=== PATIENT | female | born 1940 | race Caucasian/White ===

== ENCOUNTER 2017-02-07 12:38 | Emergency (ER) | payer MEDICARE ==
[2017-02-07 12:54] VITALS: BP 207/85
--- NOTE | 2017-02-07 13:07 | UC ---
Cardiac HPI - HPI Summary HPI Summary: The patient comes in today for: 1. Chest pain: Onset: "for about a month" She stated that she had it this morning, but it is gone now. Palliative/provocative: Rest makes it better. Quality: Sharp--almost made me catch my breath. She states that she had sweating with it. Nausea: None. Region: Retrosternal, but also radiates to the back in between the shoulder blades and with the left jaw "a little bit." Severity: Now 0/10, 8/10 this AM. Time: Comes and goes for past month. Associated symptoms: CAD risk factor: Previous disease: No stents, no bypasses, no DC, But, she has a history of stents in her right kidney (renal artery) and also in one of her legs. HTN: (+), no DM, Smoker (quit 20 years ago.). Cholesterol-- unknown. Stroke: None. * - History of Current Complaint Chief Complaint: UCChestPain Stated Complaint: CHEST PAIN Time Seen by Provider: 02/07/17 12:59 Hx Obtained From: Patient, Family/Opener Verifier [employer] - Allergy/Home Medications Allergies/Adverse Reactions: Allergies Allergy/AdvReac Type Severity Reaction Status Date / Time No Known Allergies Allergy Verified 02/07/17 12:54 PMH/Surg Hx/FS Hx/Imm Hx Previously Healthy: No - PVD, Endocrine History Of: Reports: Dyslipidemia Denies: Diabetes, Thyroid Disease, Hyperthyroidism, Hypothyroidism Cardiovascular History Of: Reports: Hypertension Denies: Cardiac Disorders, Pacemaker/ICD, Myocardial Infarction, Congestive Heart Failure, Atrial Fibrillation, Deep Vein Thrombosis, Bleeding Disorders Respiratory History Of: Denies: COPD, Asthma, Bronchitis, Pneumonia, Pulmonary Embolism GI/ History Of: Denies: Gastroesophageal Reflux, Ulcer, Gastrointestinal Bleed, Gall Bladder Disease, Kidney Stones, Diverticulitis, Renal Disease, Urosepsis Neurological History Of: Denies: TIA, CVA, Dementia, Seizures, Migraine Psychological History Of: Denies: Anxiety, Depression, Bipolar Disorder, Schizophrenia, Post Traumatic Stress Disorder Cancer History Of: Denies: Lung Cancer, Colorectal Cancer, Breast Cancer, Prostate Cancer, Cervical Cancer Other History Of: Anticoagulant Therapy - Plavix and asa Negative For: HIV, Hepatitis B, Hepatitis C - Surgical History Surgical History: Yes Surgery Procedure, Year, and Place: stent to carotis artey, kidney and rt leg - Family History Known Family History: Positive: Hypertension Negative: Cardiac Disease - Social History Occupation: Retired Lives: With Family Alcohol Use: None Substance Use Type: None Smoking Status (MU): Former Smoker Review of Systems Constitutional: Negative Skin: Negative Eyes: Negative ENT: Negative Respiratory: Negative Cardiovascular: Negative Gastrointestinal: Negative Genitourinary: Negative All Other Systems Reviewed And Are Negative: Yes Physical Exam Triage Information Reviewed: Yes Appearance: Well-Appearing, No Pain Distress, Well-Nourished Vital Signs: Initial Vital Signs Temp 98.0 F 02/07/17 12:47 Pulse 80 02/07/17 12:47 Resp 18 02/07/17 12:47 BP 207/85 02/07/17 12:47 Pulse Ox 95 02/07/17 12:47 Vital Signs Reviewed: Yes Eyes: Positive: Conjunctiva Clear. Negative: Discharge ENT: Positive: Hearing grossly normal. Negative: Pharyngeal erythema, Nasal congestion, Nasal drainage, TM bulging, TM dull, TM red, Tonsillar swelling, Tonsillar exudate Dental: Negative: Gross Decay/Caries @, Dental Fracture @ Neck: Positive: Supple, Nontender, No Lymphadenopathy. Negative: Nuchal Rigidity Respiratory: Positive: Lungs clear, No respiratory distress, No accessory muscle use. Negative: Crackles, Wheezing Cardiovascular: Positive: RRR, No Murmur Abdomen Description: Positive: Nontender, No Organomegaly, Soft. Negative: Distended, Guarding Musculoskeletal: Positive: Strength Intact, ROM Intact, No Edema Neurological: Positive: Alert, Muscle Tone Normal Psychological: Positive: Age Appropriate Behavior, Consolable - Assessment/Plan Course Of Treatment: Patient and family told liz I am concerned that she has CAD and even though she minimizes the chest pain at this time, her EKG suggests ischemia and recommended going to the ER. She agreed to go via ambulance. - Clinical Impression Provider Diagnoses: Chest pain, unstable angina,. high blood pressure. ABnormal EKG-ischemia. - Physician Notifications Discussed Patient Care With: Dr. Rich Time Discussed With Above Provider: 13:33 Discharge - Discharge Plan Condition: Stable Disposition: TRANS HIGHER LVL OF CARE FAC Additional Instructions: Patient is going via Ambulance to [facility].
[2017-02-07] MEDS ORDERED: Aspirin Low Dose CHEW TAB* 81 MG PO ONE (13:27)
== END 2017-02-07 13:44 | disposition short-term general hospital (02) ==
LOC: UCEAST 12:38
DX: R07.9 Chest pain, unspecified (principal); I20.0 Unstable angina; E78.5 Hyperlipidemia, unspecified; R94.31 Abnormal electrocardiogram [ECG] [EKG]; I10 Essential (primary) hypertension; Z79.82 Long term (current) use of aspirin; Z79.02 Long term (current) use of antithrombotics/antiplatelets; Z87.891 Personal history of nicotine dependence
CPT/HCPCS: 93005; 99213; A9270-GY; G0463

== ENCOUNTER 2020-12-19 09:23 | Inpatient (IN) ==
[2020-12-19] MEDS ORDERED: Albuterol/Ipratropium NEB.SOL (2.5/0.5 MG) 3 ML NEB.SOLN INH ONE (09:33)
[2020-12-19 10:16] LABS: ABS Eosinophils 0.1 10^3/ul (0-0.6); ABS Lymphocytes 0.4 10^3/ul (1.0-4.8); ABS Monocytes 0.4 10^3/ul (0-0.8); ABS Neutrophils 7.6 10^3/ul (1.5-7.7); Eosinophil % 1.2 %; Hematocrit 36 % (35-47); Hemoglobin 11.7 g/dL (12.0-16.0); Lymphocyte % 4.2 %; Mean Corpuscular HGB Conc 32 g/dL (31-36); Mean Corpuscular Hemoglobin 29 pg (27-31); Mean Corpuscular Volume 90 fL (80-97); Platelet Count 164 10^3/uL (150-450); Red Blood Count 4.01 10^6 /uL (3.70-4.87); Red Cell Distribution Width 14 % (10-15); White Blood Count 8.5 10^3/uL (3.5-10.8)
[2020-12-19 10:23] LABS: Activated Partial Thrombo Time 30.9 seconds (26.0-38.0); INR 1.23 (0.82-1.09)
[2020-12-19 10:40] LABS: ALT 14 U/L (7-52); AST 17 U/L (13-39); Albumin 3.8 g/dL (3.2-5.2); Albumin/Globulin Ratio 1.2 (1-3); Alkaline Phosphatase 69 U/L (34-104); Anion Gap 6 mmol/L (2-11); BUN/Creatinine Ratio 24.7 (8-20); Blood Urea Nitrogen 19 mg/dL (6-24); CO2 Carbon Dioxide 30 mmol/L (22-32); Calcium 9.9 mg/dL (8.6-10.3); Chloride 104 mmol/L (101-111); Creatine Kinase 57 U/L (10-223); EGFR African American 87.7 (>60); EGFR Non-African American 72.5 (>60); Globulin 3.1 g/dL (2-4); Glucose 127 mg/dL (70-100); Potassium 4.4 mmol/L (3.5-5.0); Sodium 140 mmol/L (135-145); Total Protein 6.9 g/dL (6.4-8.9)
[2020-12-19 10:59] LABS: Troponin I 0.03 ng/mL (<0.03)
[2020-12-19 11:01] LABS: Influenza A Molecular Negative (Negative); Influenza B Molecular Negative (Negative)
[2020-12-19] MEDS ORDERED: cefTRIAXone 1 gm/50 mL NS BAG 1 GM/50 ML BAG IV ONE (11:18)
[2020-12-19] MEDS ORDERED: Azithromycin 500 mg/250 ml NS 500 MG/250 ML BAG IVPB ONE (11:19)
[2020-12-19 13:33] LABS: Troponin I 0.04 ng/mL (<0.03)
[2020-12-19] MEDS ORDERED: Albuterol/Ipratropium NEB.SOL (2.5/0.5 MG) 3 ML NEB.SOLN INH SCH (15:00)
[2020-12-19] MEDS ORDERED: Albuterol HFA INHALER 8 gm MDI INH PRN (15:17)
[2020-12-19] MEDS ORDERED: Furosemide 40 mg/4 ml IV VIAL IV ONE (15:20)
[2020-12-19] MEDS: methylPREDNISolone SOD 40 mg/ml 1 ml VIAL IV SCH (16:24)
[2020-12-19] MEDS: Enoxaparin 40 MG/0.4 ML SYR SUBCUT SCH (16:24)
[2020-12-19 17:14] LABS: Troponin I 0.04 ng/mL (<0.03)
[2020-12-19 17:40] LABS: Urine Appearance Cloudy; Urine Bilirubin Negative (Negative); Urine Blood Negative (Negative); Urine Color Yellow; Urine Glucose Negative (Negative); Urine Ketones Negative (Negative); Urine Nitrite Negative (Negative); Urine Protein 2+(100 mg/dL) (Negative); Urine Specific Gravity 1.016 (1.010-1.030); Urine Urobilinogen Negative (Negative)
[2020-12-19 17:59] LABS: Urine Bacteria Absent (Absent); Urine Red Blood Cell Trace(0-2/hpf) (Absent); Urine Squamous Epithelial Cell Present (Absent); Urine White Blood Cell Trace(0-5/hpf) (Absent)
[2020-12-20] MEDS: methylPREDNISolone SOD 40 mg/ml 1 ml VIAL IV SCH ×2 (01:43→15:04)
[2020-12-20 08:53] LABS: ABS Basophils 0.1 10^3/ul (0-0.2); ABS Lymphocytes 0.3 10^3/ul (1.0-4.8); ABS Monocytes 0.2 10^3/ul (0-0.8); ABS Neutrophils 8.8 10^3/ul (1.5-7.7); Hematocrit 33 % (35-47); Hemoglobin 10.9 g/dL (12.0-16.0); Lymphocyte % 3.1 %; Mean Corpuscular HGB Conc 34 g/dL (31-36); Mean Corpuscular Hemoglobin 30 pg (27-31); Mean Corpuscular Volume 89 fL (80-97); Platelet Count 154 10^3/uL (150-450); Red Blood Count 3.65 10^6 /uL (3.70-4.87); Red Cell Distribution Width 14 % (10-15); White Blood Count 9.5 10^3/uL (3.5-10.8)
[2020-12-20 09:09] LABS: BUN/Creatinine Ratio 33.8 (8-20); Calcium 9.9 mg/dL (8.6-10.3); EGFR African American 96.3 (>60); EGFR Non-African American 79.6 (>60); Potassium 4.3 mmol/L (3.5-5.0)
[2020-12-20] MEDS: cefTRIAXone 1 gm/50 mL NS BAG 1 GM/50 ML BAG IVPB SCH (10:33)
[2020-12-20] MEDS: Enoxaparin 40 MG/0.4 ML SYR SUBCUT SCH (15:04)
[2020-12-21 05:30] LABS: ABS Lymphocytes 0.5 10^3/ul (1.0-4.8); ABS Monocytes 0.5 10^3/ul (0-0.8); ABS Neutrophils 10.1 10^3/ul (1.5-7.7); Hematocrit 30 % (35-47); Hemoglobin 9.7 g/dL (12.0-16.0); Lymphocyte % 4.1 %; Mean Corpuscular HGB Conc 33 g/dL (31-36); Mean Corpuscular Hemoglobin 30 pg (27-31); Mean Corpuscular Volume 90 fL (80-97); Mean Platelet Volume 9.7 fL (7.4-10.4); Platelet Count 146 10^3/uL (150-450); Red Blood Count 3.27 10^6 /uL (3.70-4.87); Red Cell Distribution Width 14 % (10-15); White Blood Count 11.1 10^3/uL (3.5-10.8)
[2020-12-21 05:48] LABS: BUN/Creatinine Ratio 39.5 (8-20); C Reactive Protein 56.82 mg/L (<8.01); Calcium 9.3 mg/dL (8.6-10.3); EGFR African American 89.1 (>60); EGFR Non-African American 73.6 (>60); Potassium 4.9 mmol/L (3.5-5.0)
[2020-12-21] MEDS ORDERED: Bismuth Subsalicylate 524 MG/30 ML BTL PO PRN (07:59)
[2020-12-21] MEDS: cefTRIAXone 1 gm/50 mL NS BAG 1 GM/50 ML BAG IVPB SCH (10:25)
[2020-12-21 12:02] VITALS: BP 121/47
[2020-12-21] MEDS: Enoxaparin 40 MG/0.4 ML SYR SUBCUT SCH (14:10)
== END 2020-12-21 16:25 | disposition home or self-care (01) | DRG 190 ==
LOC: ED 09:23 → MED 13:37
PROVIDERS: ADMIT Internal Medicine; ATTEND Pediatrics

== ENCOUNTER 2021-08-22 10:00 | Observation (INO) ==
[2021-08-22] MEDS ORDERED: Lactated Ringers 1000 ml BAG 1,000 ML IV ONE (10:24)
[2021-08-22] MEDS ORDERED: Pantoprazole VIAL 40 MG VIAL IV ONE (10:30)
[2021-08-22 10:41] LABS: ABS Basophils 0.1 10^3/ul (0-0.2); ABS Lymphocytes 0.7 10^3/ul (1.0-4.8); ABS Monocytes 0.4 10^3/ul (0-0.8); ABS Neutrophils 6.8 10^3/ul (1.5-7.7); Eosinophil % 0.4 %; Hematocrit 22 % (35-47); Hemoglobin 6.8 g/dL (12.0-16.0); Lymphocyte % 8.7 %; Mean Corpuscular HGB Conc 31 g/dL (31-36); Mean Corpuscular Hemoglobin 24 pg (27-31); Mean Corpuscular Volume 78 fL (80-97); Mean Platelet Volume 10.1 fL (7.4-10.4); Nucleated Red Blood Cells % 0.1; Platelet Count 140 10^3/uL (150-450); Red Cell Distribution Width 17 % (10-15)
[2021-08-22 10:52] LABS: INR 1.18 (0.86-1.15)
[2021-08-22 10:56] LABS: ALT 8 U/L (7-52); AST 24 U/L (13-39); Albumin 3.7 g/dL (3.2-5.2); Albumin/Globulin Ratio 1.8 (1-3); Alkaline Phosphatase 58 U/L (35-149); Anion Gap 9 mmol/L (2-11); Blood Urea Nitrogen 30 mg/dL (6-24); CO2 Carbon Dioxide 23 mmol/L (22-32); Calcium 9.7 mg/dL (8.6-10.3); Chloride 105 mmol/L (101-111); Globulin 2.1 g/dL (2-4); Glucose 116 mg/dL (70-100); Potassium 4.6 mmol/L (3.5-5.0); Sodium 137 mmol/L (135-145); Total Protein 5.8 g/dL (6.4-8.9)
[2021-08-22] MEDS ORDERED: Iodixanol (CONTRAST) 320 MG/ML 100 ML SDV IV ONE (11:15)
[2021-08-22] MEDS ORDERED: Pantoprazole 80 mg in NS BAG 80 MG/250 ML BAG IV ONE (14:00)
[2021-08-22] MEDS ORDERED: NS 0.9% 1000 ml BAG 1,000 ML IV SCH ×3 (15:15→21:33)
[2021-08-22] MEDS ORDERED: Albuterol HFA INHALER 8 gm MDI INH PRN (15:44)
[2021-08-22] MEDS ORDERED: fentaNYL 100 mcg/2 ml 50 MCG/ML VIAL ONE (16:14)
[2021-08-22] MEDS ORDERED: Midazolam 10 mg/10 ml VIAL 1 mg/ml 10 ml VIAL (10 mg) ONE (16:14)
[2021-08-22] MEDS ORDERED: PEG 3000 GI LAVAGE 1 GALLON PO ONE (17:00)
[2021-08-22 18:56] LABS: C Reactive Protein < 1.00 mg/L (<8.01)
[2021-08-22 19:54] LABS: Hematocrit 23 % (35-47); Hemoglobin 7.3 g/dL (12.0-16.0)
[2021-08-22] MEDS ORDERED: Furosemide 40 mg/4 ml IV VIAL IV SLOW PU ONE (22:25)
[2021-08-22] MEDS ORDERED: Ondansetron 4 mg VIAL 2 MG/ML 2 ml VIAL IV PRN (22:27)
[2021-08-22] MEDS ORDERED: Furosemide 20 mg/2 ml IV VIAL IV SLOW PU ONE (22:30)
[2021-08-23] MEDS ORDERED: Pantoprazole 80 mg in NS BAG 80 MG/250 ML BAG IV SCH (01:00)
[2021-08-23 04:50] LABS: Calcium 8.6 mg/dL (8.6-10.3); Potassium 3.7 mmol/L (3.5-5.0)
[2021-08-23] MEDS ORDERED: PEG 3000 GI LAVAGE 1 GALLON PO ONE (06:00)
[2021-08-23 06:13] LABS: Hematocrit 25 % (35-47); Hemoglobin 7.9 g/dL (12.0-16.0); Mean Corpuscular HGB Conc 32 g/dL (31-36); Mean Corpuscular Hemoglobin 25 pg (27-31); Mean Corpuscular Volume 80 fL (80-97); Red Blood Count 3.12 10^6 /uL (3.70-4.87); Red Cell Distribution Width 17 % (10-15); White Blood Count 4.8 10^3/uL (3.5-10.8)
[2021-08-23 06:14] LABS: ABS Basophils 0.1 10^3/ul (0-0.2); ABS Eosinophils 0.2 10^3/ul (0-0.6); ABS Lymphocytes 0.7 10^3/ul (1.0-4.8); ABS Monocytes 0.6 10^3/ul (0-0.8); ABS Neutrophils 3.2 10^3/ul (1.5-7.7); Eosinophil % 4.1 %; Nucleated Red Blood Cells % 0.1
[2021-08-23 08:31] LABS: Mean Platelet Volume 10.3 fL (7.4-10.4); Platelet Count 94 10^3/uL (150-450)
[2021-08-23 09:57] LABS: Hematocrit 26 % (35-47); Hemoglobin 8.2 g/dL (12.0-16.0)
[2021-08-23] MEDS ORDERED: fentaNYL 100 mcg/2 ml 50 MCG/ML VIAL ONE (14:01)
[2021-08-23] MEDS ORDERED: Midazolam 10 mg/10 ml VIAL 1 mg/ml 10 ml VIAL (10 mg) ONE (14:01)
[2021-08-23] MEDS ORDERED: Furosemide 20 mg/2 ml IV VIAL IV SLOW PU ONE ×2 (15:27→17:12)
[2021-08-23] MEDS ORDERED: Albuterol 2.5mg/3 ml (0.083%) NEB.SOLN INH ONE ×2 (15:27→20:48)
[2021-08-23] MEDS ORDERED: Furosemide 20 mg/2 ml IV VIAL ONE ×2 (15:41→17:13)
[2021-08-23 16:07] LABS: ABS Basophils 0.1 10^3/ul (0-0.2); ABS Eosinophils 0.4 10^3/ul (0-0.6); ABS Lymphocytes 1.2 10^3/ul (1.0-4.8); ABS Monocytes 0.8 10^3/ul (0-0.8); ABS Neutrophils 4.6 10^3/ul (1.5-7.7); Eosinophil % 5.3 %; Hematocrit 27 % (35-47); Hemoglobin 8.7 g/dL (12.0-16.0); Lymphocyte % 17.1 %; Mean Corpuscular HGB Conc 32 g/dL (31-36); Mean Corpuscular Hemoglobin 26 pg (27-31); Mean Corpuscular Volume 80 fL (80-97); Mean Platelet Volume 10.6 fL (7.4-10.4); Nucleated Red Blood Cells % 0.2; Platelet Count 111 10^3/uL (150-450); Red Blood Count 3.37 10^6 /uL (3.70-4.87); Red Cell Distribution Width 17 % (10-15)
[2021-08-23 16:48] LABS: Calcium 8.7 mg/dL (8.6-10.3); Potassium 3.6 mmol/L (3.5-5.0)
[2021-08-23 16:57] LABS: PCO2 Arterial 71 mmHg (35-45); PO2 Arterial 188 mmHg (80-100)
[2021-08-23 21:35] LABS: Troponin I 0.04 ng/mL (<0.03)
[2021-08-24 00:13] LABS: Troponin I 0.04 ng/mL (<0.03)
[2021-08-24 03:34] LABS: ABS Eosinophils 0.1 10^3/ul (0-0.6); ABS Lymphocytes 0.9 10^3/ul (1.0-4.8); ABS Monocytes 0.7 10^3/ul (0-0.8); Anion Gap 5 mmol/L (2-11); Blood Urea Nitrogen 10 mg/dL (6-24); CO2 Carbon Dioxide 35 mmol/L (22-32); Calcium 8.4 mg/dL (8.6-10.3); Chloride 98 mmol/L (101-111); Eosinophil % 1.6 %; Glucose 75 mg/dL (70-100); Hematocrit 23 % (35-47); Hemoglobin 7.5 g/dL (12.0-16.0); Mean Corpuscular HGB Conc 32 g/dL (31-36); Mean Corpuscular Hemoglobin 25 pg (27-31); Mean Corpuscular Volume 78 fL (80-97); Mean Platelet Volume 10.1 fL (7.4-10.4); Nucleated Red Blood Cells % 0.1; Platelet Count 88 10^3/uL (150-450); Potassium 3.2 mmol/L (3.5-5.0); Red Blood Count 2.96 10^6 /uL (3.70-4.87); Red Cell Distribution Width 17 % (10-15); Sodium 138 mmol/L (135-145); White Blood Count 6.7 10^3/uL (3.5-10.8)
[2021-08-24 03:51] LABS: Troponin I 0.06 ng/mL (<0.03)
[2021-08-24 10:51] LABS: Troponin I 0.07 ng/mL (<0.03)
[2021-08-24] MEDS: KCL 20 MEQ/100 ML IVPREMIX 20 MEQ/100 ML BAG IV SCH ×2 (11:32→15:33)
[2021-08-24] MEDS ORDERED: Furosemide 40 mg/4 ml IV VIAL IV SLOW PU ONE (20:40)
[2021-08-24] MEDS ORDERED: Furosemide 40 mg/4 ml IV VIAL ONE (20:46)
[2021-08-24 22:15] LABS: PCO2 Arterial 70 mmHg (35-45); PO2 Arterial 119 mmHg (80-100)
[2021-08-24 22:35] LABS: Rapid COVID-19 Molecular Undetected (Undetected)
[2021-08-24] MEDS ORDERED: Bumetanide IV 10 MG in Premix IV 0 ML IV SCH (23:15)
[2021-08-25] MEDS ORDERED: Bumetanide IV 10 MG in Premix IV 0 ML IV SCH (03:05)
[2021-08-25] MEDS ORDERED: Bumetanide IV 0.25 MG/ML 4 ml VIAL (1 mg) ONE (03:11)
[2021-08-25 05:03] LABS: ABS Lymphocytes 0.4 10^3/ul (1.0-4.8); ABS Monocytes 0.8 10^3/ul (0-0.8); ABS Neutrophils 6.6 10^3/ul (1.5-7.7); Eosinophil % 0.3 %; Hematocrit 29 % (35-47); Hemoglobin 9.4 g/dL (12.0-16.0); Lymphocyte % 5.6 %; Mean Corpuscular HGB Conc 32 g/dL (31-36); Mean Corpuscular Hemoglobin 26 pg (27-31); Mean Corpuscular Volume 80 fL (80-97); Mean Platelet Volume 10.6 fL (7.4-10.4); Platelet Count 92 10^3/uL (150-450); Red Blood Count 3.65 10^6 /uL (3.70-4.87); Red Cell Distribution Width 17 % (10-15); White Blood Count 7.8 10^3/uL (3.5-10.8)
[2021-08-25 05:17] LABS: Magnesium 1.4 mg/dL (1.9-2.7); Potassium 3.3 mmol/L (3.5-5.0)
[2021-08-25] MEDS ORDERED: Magnesium Sulf 4 GM/100 ML IV 4,000 MG/100 ML BAG IVPB ONE (07:31)
[2021-08-25 08:00] LABS: Phosphorus 4.1 mg/dL (2.5-5.0)
[2021-08-25] MEDS ORDERED: Potassium Chlor 20 meq TAB.ER PO ONE (11:47)
[2021-08-25] MEDS ORDERED: KCL 10 MEQ/50 ML IVPREMIX 10 MEQ/50 ML BAG IV ONE (11:55)
[2021-08-26 05:37] LABS: Calcium 8.9 mg/dL (8.6-10.3); Magnesium 1.9 mg/dL (1.9-2.7); Phosphorus 2.6 mg/dL (2.5-5.0); Potassium 3.4 mmol/L (3.5-5.0)
[2021-08-26 05:38] LABS: ABS Eosinophils 0.2 10^3/ul (0-0.6); ABS Lymphocytes 0.4 10^3/ul (1.0-4.8); ABS Neutrophils 6.4 10^3/ul (1.5-7.7); Eosinophil % 2.7 %; Hematocrit 27 % (35-47); Hemoglobin 8.8 g/dL (12.0-16.0); Lymphocyte % 5.5 %; Mean Corpuscular HGB Conc 33 g/dL (31-36); Mean Corpuscular Hemoglobin 26 pg (27-31); Mean Corpuscular Volume 80 fL (80-97); Mean Platelet Volume 10.2 fL (7.4-10.4); Platelet Count 86 10^3/uL (150-450); Red Blood Count 3.41 10^6 /uL (3.70-4.87); Red Cell Distribution Width 17 % (10-15); White Blood Count 8.1 10^3/uL (3.5-10.8)
[2021-08-26] MEDS ORDERED: Potassium Chlor 20 meq TAB.ER PO ONE (07:20)
[2021-08-26] MEDS ORDERED: Furosemide 40 mg/4 ml IV VIAL IV SLOW PU ONE (09:18)
[2021-08-26] MEDS ORDERED: Potassium Chloride LIQUID 20 MEQ/15 ML LIQUID PO ONE (09:18)
[2021-08-26] MEDS: SPIRIVA Respimat (tiotropium) 2.5 mcg/inh Inhaler INH SCH (14:14)
[2021-08-27 04:32] LABS: ABS Eosinophils 0.2 10^3/ul (0-0.6); ABS Lymphocytes 0.5 10^3/ul (1.0-4.8); ABS Monocytes 0.8 10^3/ul (0-0.8); ABS Neutrophils 4.2 10^3/ul (1.5-7.7); Eosinophil % 3.6 %; Hematocrit 28 % (35-47); Hemoglobin 8.9 g/dL (12.0-16.0); Lymphocyte % 8.8 %; Mean Corpuscular HGB Conc 32 g/dL (31-36); Mean Corpuscular Hemoglobin 26 pg (27-31); Mean Corpuscular Volume 80 fL (80-97); Mean Platelet Volume 9.8 fL (7.4-10.4); Platelet Count 100 10^3/uL (150-450); Red Blood Count 3.48 10^6 /uL (3.70-4.87); Red Cell Distribution Width 18 % (10-15); White Blood Count 5.7 10^3/uL (3.5-10.8)
[2021-08-27 04:52] LABS: Albumin 3.4 g/dL (3.2-5.2); Albumin/Globulin Ratio 1.7 (1-3); Calcium 9.3 mg/dL (8.6-10.3); Magnesium 1.8 mg/dL (1.9-2.7); Potassium 3.2 mmol/L (3.5-5.0); Total Bilirubin 0.5 mg/dL (0.2-1.0); Total Protein 5.4 g/dL (6.4-8.9)
[2021-08-27] MEDS ORDERED: Potassium Chlor 20 meq TAB.ER PO ONE (09:24)
[2021-08-27] MEDS ORDERED: Magnesium Sulfate 2 gm BAG 2 GM/50 ML BAG IVPB ONE (09:24)
[2021-08-27] MEDS ORDERED: Aspirin EC 81 mg TAB.EC (enteric coated) PO SCH (10:00)
[2021-08-27] MEDS: SPIRIVA Respimat (tiotropium) 2.5 mcg/inh Inhaler INH SCH (10:18)
[2021-08-27 11:54] VITALS: BP 134/65
== END 2021-08-27 15:10 | disposition home or self-care (01) | DRG 377 ==
LOC: MEDTELE 10:00 → ED 10:00 → OBSVTOIN 15:48 → INTOOBSV 15:48 → SUATTDRO 15:48 → MEDTELE 15:52 → ICU 08-24 21:14 → MED 08-26 19:45
PROVIDERS: ADMIT Internal Medicine; ATTEND Hospitalist

== ENCOUNTER 2021-09-01 10:25 | Inpatient (IN) ==
[2021-09-01 11:05] LABS: ABS Basophils 0.1 10^3/ul (0-0.2); ABS Eosinophils 0.3 10^3/ul (0-0.6); ABS Monocytes 0.6 10^3/ul (0-0.8); ABS Neutrophils 7.5 10^3/ul (1.5-7.7); Eosinophil % 2.8 %; Hematocrit 26 % (35-47); Lymphocyte % 10.7 %; Mean Corpuscular HGB Conc 31 g/dL (31-36); Mean Corpuscular Hemoglobin 25 pg (27-31); Mean Corpuscular Volume 82 fL (80-97); Mean Platelet Volume 10.3 fL (7.4-10.4); Platelet Count 182 10^3/uL (150-450); Red Blood Count 3.17 10^6 /uL (3.70-4.87); Red Cell Distribution Width 18 % (10-15); White Blood Count 9.4 10^3/uL (3.5-10.8)
[2021-09-01] MEDS ORDERED: PEG 3000 GI LAVAGE 1 GALLON PO ONE (11:14)
[2021-09-01 11:24] LABS: Albumin 3.5 g/dL (3.2-5.2); Albumin/Globulin Ratio 1.6 (1-3); Calcium 9.6 mg/dL (8.6-10.3); Globulin 2.2 g/dL (2-4); INR 1.08 (0.86-1.15); Potassium 4.7 mmol/L (3.5-5.0); Total Bilirubin 0.4 mg/dL (0.2-1.0); Total Protein 5.7 g/dL (6.4-8.9); eGFR CKD-EPI 67.7 (>60)
[2021-09-01] MEDS ORDERED: Ondansetron 4 mg VIAL 2 MG/ML 2 ml VIAL IV ONE (13:32)
[2021-09-01] MEDS ORDERED: Ondansetron 4 mg VIAL 2 MG/ML 2 ml VIAL IV PRN (14:03)
[2021-09-01] MEDS ORDERED: Albuterol HFA INHALER 8 gm MDI INH PRN (14:08)
[2021-09-01 17:32] LABS: Rapid COVID-19 Molecular Undetected (Undetected)
[2021-09-01 19:39] LABS: Hematocrit 21 % (35-47); Hemoglobin 6.6 g/dL (12.0-16.0)
[2021-09-02 02:59] LABS: Hematocrit 23 % (35-47); Hemoglobin 7.3 g/dL (12.0-16.0)
[2021-09-02] MEDS: SPIRIVA Respimat (tiotropium) 2.5 mcg/inh Inhaler INH SCH (08:24)
[2021-09-02 08:54] LABS: ABS Eosinophils 0.2 10^3/ul (0-0.6); ABS Lymphocytes 0.7 10^3/ul (1.0-4.8); ABS Monocytes 0.4 10^3/ul (0-0.8); ABS Neutrophils 2.5 10^3/ul (1.5-7.7); Eosinophil % 4.1 %; Hematocrit 29 % (35-47); Hemoglobin 9.5 g/dL (12.0-16.0); Lymphocyte % 18.5 %; Mean Corpuscular HGB Conc 32 g/dL (31-36); Mean Corpuscular Hemoglobin 27 pg (27-31); Mean Corpuscular Volume 82 fL (80-97); Mean Platelet Volume 10.3 fL (7.4-10.4); Platelet Count 130 10^3/uL (150-450); Red Blood Count 3.57 10^6 /uL (3.70-4.87); Red Cell Distribution Width 18 % (10-15); White Blood Count 3.8 10^3/uL (3.5-10.8)
[2021-09-02 09:12] LABS: Calcium 9.3 mg/dL (8.6-10.3); Potassium 4.3 mmol/L (3.5-5.0); eGFR CKD-EPI 82.2 (>60)
[2021-09-02 18:13] LABS: Hematocrit 32 % (35-47); Hemoglobin 10.1 g/dL (12.0-16.0)
[2021-09-03 05:50] LABS: ABS Eosinophils 0.2 10^3/ul (0-0.6); ABS Lymphocytes 0.6 10^3/ul (1.0-4.8); ABS Monocytes 0.5 10^3/ul (0-0.8); ABS Neutrophils 2.4 10^3/ul (1.5-7.7); Eosinophil % 4.7 %; Hematocrit 28 % (35-47); Lymphocyte % 15.8 %; Mean Corpuscular HGB Conc 32 g/dL (31-36); Mean Corpuscular Hemoglobin 26 pg (27-31); Mean Corpuscular Volume 82 fL (80-97); Mean Platelet Volume 9.8 fL (7.4-10.4); Platelet Count 115 10^3/uL (150-450); Red Blood Count 3.44 10^6 /uL (3.70-4.87); Red Cell Distribution Width 18 % (10-15); White Blood Count 3.7 10^3/uL (3.5-10.8)
[2021-09-03 06:12] LABS: Calcium 9.4 mg/dL (8.6-10.3); eGFR CKD-EPI 78.4 (>60)
[2021-09-03] MEDS: SPIRIVA Respimat (tiotropium) 2.5 mcg/inh Inhaler INH SCH (06:52)
[2021-09-04] MEDS: SPIRIVA Respimat (tiotropium) 2.5 mcg/inh Inhaler INH SCH (08:30)
[2021-09-04] MEDS ORDERED: Regadenoson 0.4 MG/5 ML SYRINGE ONE (11:55)
[2021-09-04] MEDS ORDERED: Aminophylline 25 MG/ML VIAL ONE (11:55)
[2021-09-04 15:48] VITALS: BP 146/69
== END 2021-09-04 16:05 | disposition home or self-care (01) | DRG 379 ==
LOC: ED 10:25 → EDHOLD 14:23 → MEDTELE 16:33
PROVIDERS: ADMIT Hospitalist; ATTEND Internal Medicine

== ENCOUNTER 2021-10-16 08:29 | Inpatient (IN) ==
[2021-10-16 09:49] LABS: ABS Eosinophils 0.1 10^3/ul (0-0.6); ABS Lymphocytes 0.4 10^3/ul (1.0-4.8); ABS Monocytes 0.5 10^3/ul (0-0.8); ABS Neutrophils 5.5 10^3/ul (1.5-7.7); Eosinophil % 1.1 %; Hematocrit 23 % (35-47); Hemoglobin 6.9 g/dL (12.0-16.0); Lymphocyte % 6.7 %; Mean Corpuscular HGB Conc 30 g/dL (31-36); Mean Corpuscular Hemoglobin 24 pg (27-31); Mean Corpuscular Volume 79 fL (80-97); Mean Platelet Volume 10.8 fL (7.4-10.4); Nucleated Red Blood Cells % 0.1; Platelet Count 114 10^3/uL (150-450); Red Blood Count 2.95 10^6 /uL (3.70-4.87); Red Cell Distribution Width 20 % (10-15); White Blood Count 6.6 10^3/uL (3.5-10.8)
[2021-10-16 10:05] LABS: Albumin 3.6 g/dL (3.2-5.2); Albumin/Globulin Ratio 2.1 (1-3); Globulin 1.7 g/dL (2-4); Potassium 4.3 mmol/L (3.5-5.0); Total Bilirubin 0.3 mg/dL (0.2-1.0); Total Protein 5.3 g/dL (6.4-8.9); eGFR CKD-EPI 87.9 (>60)
[2021-10-16] MEDS ORDERED: Ondansetron 4 mg VIAL 2 MG/ML 2 ml VIAL IV PRN (12:06)
[2021-10-16] MEDS ORDERED: Albuterol HFA INHALER 8 gm MDI INH PRN (12:24)
[2021-10-16 13:34] LABS: INR 1.23 (0.86-1.15)
[2021-10-16] MEDS ORDERED: PEG 3000 GI LAVAGE 1 GALLON PO ONE (16:56)
[2021-10-16 19:26] LABS: Hematocrit 25 % (35-47); Hemoglobin 7.7 g/dL (12.0-16.0)
[2021-10-16 23:17] LABS: Hematocrit 22 % (35-47); Hemoglobin 6.8 g/dL (12.0-16.0)
[2021-10-17 07:57] LABS: Hematocrit 29 % (35-47); Hemoglobin 8.9 g/dL (12.0-16.0); Mean Corpuscular HGB Conc 31 g/dL (31-36); Mean Corpuscular Hemoglobin 26 pg (27-31); Mean Corpuscular Volume 84 fL (80-97); Mean Platelet Volume 10.4 fL (7.4-10.4); Platelet Count 127 10^3/uL (150-450); Red Blood Count 3.49 10^6 /uL (3.70-4.87); Red Cell Distribution Width 20 % (10-15); White Blood Count 8.3 10^3/uL (3.5-10.8)
[2021-10-17 08:14] LABS: Calcium 8.7 mg/dL (8.6-10.3); Potassium 4.4 mmol/L (3.5-5.0); eGFR CKD-EPI 88.5 (>60)
[2021-10-17 08:20] LABS: ABS Eosinophils 0.1 10^3/ul (0-0.6); ABS Lymphocytes 0.5 10^3/ul (1.0-4.8); ABS Monocytes 0.8 10^3/ul (0-0.8); ABS Neutrophils 6.9 10^3/ul (1.5-7.7); Eosinophil % 0.7 %; Nucleated Red Blood Cells % 0.1
[2021-10-17] MEDS: SPIRIVA Respimat (tiotropium) 2.5 mcg/inh Inhaler INH SCH (08:46)
[2021-10-17] MEDS ORDERED: Succinylcholine 200 mg VIAL 20 mg/ml 10 ml VIAL (200 mg) ONE (11:33)
[2021-10-17] MEDS ORDERED: Rocuronium 50 mg VIAL 10 mg/ml 5 ml VIAL (50 mg) ONE ×2 (11:33→12:48)
[2021-10-17 11:37] LABS: PO2 Arterial 67 mmHg (80-100)
[2021-10-17 11:42] LABS: PCO2 Arterial 109 mmHg (35-45)
[2021-10-17] MEDS ORDERED: Lactated Ringers 1000 ml BAG 1,000 ML IV ONE (11:46)
[2021-10-17 12:20] LABS: Hematocrit 31 % (35-47); Hemoglobin 9.4 g/dL (12.0-16.0)
[2021-10-17] MEDS ORDERED: Norepinephrine 16MCG/ML BAG NS 4,000 MCG/250 ML BAG IV ONE (12:50)
[2021-10-17] MEDS ORDERED: Etomidate 40 mg/20 ml (2 MG/ML) 20 ml VIAL (40 mg) ONE (13:12)
[2021-10-17] MEDS ORDERED: Propofol 10 mg/ml 100 ML BTL 100 ML ONE (14:03)
[2021-10-17] MEDS: Propofol 10 mg/ml 100 ML BTL 100 ML IV SCH ×2 (14:11→19:06)
[2021-10-17] MEDS ORDERED: Norepinephrine 16MCG/ML BAG NS 4,000 MCG/250 ML BAG IV SCH (15:00)
[2021-10-17] MEDS: Chlorhexidine MOUTHWASH 0.12% 15 ML UDC TOPICAL SCH ×3 (15:12→20:33)
[2021-10-17 15:57] LABS: PO2 Arterial 127 mmHg (80-100)
[2021-10-17 16:02] LABS: PCO2 Arterial 80 mmHg (35-45)
[2021-10-17 16:59] LABS: Hematocrit 30 % (35-47); Hemoglobin 9.3 g/dL (12.0-16.0)
[2021-10-17] MEDS: Famotidine IV 10 MG/ML 2 ml VIAL (20 mg) IV SLOW PU SCH (20:33)
[2021-10-17 21:49] LABS: Hematocrit 25 % (35-47); Hemoglobin 7.9 g/dL (12.0-16.0)
[2021-10-18] MEDS: Propofol 10 mg/ml 100 ML BTL 100 ML IV SCH ×3 (00:11→05:10)
[2021-10-18] MEDS ORDERED: Acetaminophen IV 1 GM/100ML VI 100 ML IV PRN (01:20)
[2021-10-18] MEDS: Chlorhexidine MOUTHWASH 0.12% 15 ML UDC TOPICAL SCH ×3 (01:56→08:45)
[2021-10-18 05:17] LABS: Hematocrit 26 % (35-47); Hemoglobin 8.3 g/dL (12.0-16.0); Mean Corpuscular HGB Conc 32 g/dL (31-36); Mean Corpuscular Hemoglobin 26 pg (27-31); Mean Corpuscular Volume 81 fL (80-97); Mean Platelet Volume 10.4 fL (7.4-10.4); Platelet Count 90 10^3/uL (150-450); Red Blood Count 3.22 10^6 /uL (3.70-4.87); Red Cell Distribution Width 21 % (10-15); White Blood Count 8.7 10^3/uL (3.5-10.8)
[2021-10-18 05:21] LABS: INR 1.28 (0.86-1.15)
[2021-10-18 05:29] LABS: Calcium 8.9 mg/dL (8.6-10.3); Magnesium 1.6 mg/dL (1.9-2.7); Potassium 4.1 mmol/L (3.5-5.0); eGFR CKD-EPI 70.6 (>60)
[2021-10-18] MEDS: SPIRIVA Respimat (tiotropium) 2.5 mcg/inh Inhaler INH SCH (07:14)
[2021-10-18] MEDS ORDERED: Magnesium Sulf 4 GM/100 ML IV 4,000 MG/100 ML BAG IVPB ONE (07:14)
[2021-10-18] MEDS: Famotidine IV 10 MG/ML 2 ml VIAL (20 mg) IV SLOW PU SCH ×2 (07:24→21:38)
[2021-10-18 10:56] LABS: PCO2 Arterial 62 mmHg (35-45); PO2 Arterial 104 mmHg (80-100)
[2021-10-18] MEDS ORDERED: Furosemide 40 mg/4 ml IV VIAL ONE (12:41)
[2021-10-18] MEDS ORDERED: Furosemide 40 mg/4 ml IV VIAL IV SLOW PU ONE (12:45)
[2021-10-18] MEDS ORDERED: Albuterol HFA INHALER 8 gm MDI INH PRN (14:58)
[2021-10-18 16:37] LABS: Ferritin 25.1 ng/mL (11-307)
[2021-10-19 04:56] LABS: ABS Basophils 0.1 10^3/ul (0-0.2); ABS Lymphocytes 0.5 10^3/ul (1.0-4.8); ABS Monocytes 1.2 10^3/ul (0-0.8); ABS Neutrophils 13.6 10^3/ul (1.5-7.7); Eosinophil % 0.2 %; Hematocrit 30 % (35-47); Hemoglobin 9.3 g/dL (12.0-16.0); Lymphocyte % 3.5 %; Mean Corpuscular HGB Conc 31 g/dL (31-36); Mean Corpuscular Hemoglobin 26 pg (27-31); Mean Corpuscular Volume 83 fL (80-97); Mean Platelet Volume 10.7 fL (7.4-10.4); Nucleated Red Blood Cells % 0.1; Platelet Count 115 10^3/uL (150-450); Red Blood Count 3.59 10^6 /uL (3.70-4.87); Red Cell Distribution Width 21 % (10-15); White Blood Count 15.4 10^3/uL (3.5-10.8)
[2021-10-19 05:09] LABS: Calcium 9.1 mg/dL (8.6-10.3); Phosphorus 3.8 mg/dL (2.5-5.0); Potassium 3.6 mmol/L (3.5-5.0); eGFR CKD-EPI 90.2 (>60)
[2021-10-19] MEDS ORDERED: Potassium Chlor 20 meq TAB.ER PO ONE (07:40)
[2021-10-19] MEDS: Famotidine IV 10 MG/ML 2 ml VIAL (20 mg) IV SLOW PU SCH (08:33)
[2021-10-19] MEDS: Iron Sucrose 200 MG in NS 0.9% 100 ml BAG 100 ML IVPB SCH (08:34)
[2021-10-19] MEDS ORDERED: Albuterol/Ipratropium NEB.SOL (2.5/0.5 MG) 3 ML NEB.SOLN INH ONE (08:38)
[2021-10-19] MEDS ORDERED: Iron Sucrose 200 MG in NS 0.9% 100 ml BAG 100 ML IVPB ONE (09:00)
[2021-10-19 10:31] LABS: PO2 Arterial 86 mmHg (80-100)
[2021-10-19] MEDS ORDERED: Furosemide 40 mg/4 ml IV VIAL IV ONE (10:34)
[2021-10-19 11:03] LABS: PCO2 Arterial 105 mmHg (35-45)
[2021-10-19] MEDS: cefTRIAXone 1 gm/50 mL NS BAG 1 GM/50 ML BAG IVPB SCH (11:47)
[2021-10-19] MEDS: DOXYcycline 100 MG in NS 0.9% 250 ml 250 ML IVPB SCH ×2 (11:47→23:07)
[2021-10-19] MEDS: Albuterol/Ipratropium NEB.SOL (2.5/0.5 MG) 3 ML NEB.SOLN INH PRN ×2 (12:22→17:21)
[2021-10-19] MEDS: Pantoprazole VIAL 40 MG VIAL IV SCH (17:43)
[2021-10-20 05:26] LABS: ABS Eosinophils 0.1 10^3/ul (0-0.6); ABS Lymphocytes 0.4 10^3/ul (1.0-4.8); ABS Neutrophils 8.6 10^3/ul (1.5-7.7); Eosinophil % 0.5 %; Hematocrit 28 % (35-47); Lymphocyte % 3.7 %; Mean Corpuscular HGB Conc 32 g/dL (31-36); Mean Corpuscular Hemoglobin 26 pg (27-31); Mean Corpuscular Volume 82 fL (80-97); Mean Platelet Volume 10.5 fL (7.4-10.4); Nucleated Red Blood Cells % 0.1; Platelet Count 99 10^3/uL (150-450); Red Blood Count 3.42 10^6 /uL (3.70-4.87); Red Cell Distribution Width 21 % (10-15)
[2021-10-20 05:37] LABS: Calcium 9.2 mg/dL (8.6-10.3); Magnesium 1.5 mg/dL (1.9-2.7); Phosphorus 1.6 mg/dL (2.5-5.0); Potassium 2.9 mmol/L (3.5-5.0); eGFR CKD-EPI 91.6 (>60)
[2021-10-20] MEDS: Pantoprazole VIAL 40 MG VIAL IV SCH ×2 (07:40→16:49)
[2021-10-20] MEDS ORDERED: Magnesium Sulfate IV 3 GM in NS 0.9% 100 ml BAG 100 ML IVPB ONE (08:00)
[2021-10-20] MEDS: Iron Sucrose 200 MG in NS 0.9% 100 ml BAG 100 ML IVPB SCH (08:32)
[2021-10-20 09:01] LABS: Calcium 9.7 mg/dL (8.6-10.3); eGFR CKD-EPI 88.9 (>60)
[2021-10-20] MEDS: cefTRIAXone 1 gm/50 mL NS BAG 1 GM/50 ML BAG IVPB SCH (11:46)
[2021-10-20] MEDS ORDERED: Potassium Chloride LIQUID 20 MEQ/15 ML LIQUID PO ONE ×2 (11:51→17:00)
[2021-10-20 12:18] LABS: Magnesium 1.6 mg/dL (1.9-2.7)
[2021-10-20] MEDS: DOXYcycline 100 MG in NS 0.9% 250 ml 250 ML IVPB SCH ×2 (13:14→22:52)
[2021-10-20] MEDS: KCL 20 MEQ/100 ML IVPREMIX 20 MEQ/100 ML BAG IV SCH (13:24)
[2021-10-20] MEDS ORDERED: Polyethylene Glycol 3350 17 GM PACKET PO PRN (16:38)
[2021-10-20] MEDS ORDERED: Magnesium Hydroxide LIQ 30 ML UDC PO PRN (16:38)
[2021-10-20] MEDS ORDERED: Senna TAB 8.6 mg TAB PO PRN (16:38)
[2021-10-20] MEDS: Magnesium Hydroxide LIQ 30 ML UDC PO SCH (20:20)
[2021-10-21 05:18] LABS: Blood Urea Nitrogen 17 mg/dL (6-24); CO2 Carbon Dioxide 31 mmol/L (22-32); Chloride 102 mmol/L (101-111); Glucose 96 mg/dL (70-100); Sodium 136 mmol/L (135-145); eGFR CKD-EPI 83.6 (>60)
[2021-10-21 05:25] LABS: Anion Gap 3 mmol/L (2-11)
[2021-10-21 06:04] LABS: Hematocrit 29 % (35-47); Hemoglobin 8.8 g/dL (12.0-16.0); Mean Corpuscular HGB Conc 31 g/dL (31-36); Mean Corpuscular Hemoglobin 26 pg (27-31); Mean Corpuscular Volume 85 fL (80-97); Red Blood Count 3.38 10^6 /uL (3.70-4.87); Red Cell Distribution Width 22 % (10-15); White Blood Count 6.4 10^3/uL (3.5-10.8)
[2021-10-21 06:19] LABS: Potassium Redraw 3.4 mmol/L (3.5-5.0)
[2021-10-21 06:42] LABS: Mean Platelet Volume 10.3 fL (7.4-10.4); Platelet Count 92 10^3/uL (150-450)
[2021-10-21 06:45] LABS: Phosphorus 2.1 mg/dL (2.5-5.0)
[2021-10-21] MEDS ORDERED: Potassium Phosphate IV 15 MMOLE in NS 0.9% 250 ml 250 ML IVPB ONE (07:05)
[2021-10-21] MEDS: Magnesium Hydroxide LIQ 30 ML UDC PO SCH ×2 (08:17→20:26)
[2021-10-21] MEDS: Pantoprazole VIAL 40 MG VIAL IV SCH ×2 (08:17→16:15)
[2021-10-21] MEDS: SPIRIVA Respimat (tiotropium) 2.5 mcg/inh Inhaler INH SCH (09:14)
[2021-10-21] MEDS ORDERED: Saline NASAL SPRAY 0.65% BTL BOTH NARES PRN (09:44)
[2021-10-21] MEDS: Iron Sucrose 200 MG in NS 0.9% 100 ml BAG 100 ML IVPB SCH (10:03)
[2021-10-21] MEDS: cefTRIAXone 1 gm/50 mL NS BAG 1 GM/50 ML BAG IVPB SCH (10:59)
[2021-10-21] MEDS: DOXYcycline 100 MG in NS 0.9% 250 ml 250 ML IVPB SCH ×2 (11:00→22:52)
[2021-10-21 12:24] LABS: % Iron Saturation 4 % (14 - 50); Total Iron Binding Capacity 398 mcg/dL (250 - 400); Transferrin 337 mg/dL (200 - 360)
[2021-10-22 08:15] LABS: Hematocrit 29 % (35-47); Hemoglobin 9.1 g/dL (12.0-16.0); Mean Corpuscular HGB Conc 31 g/dL (31-36); Mean Corpuscular Hemoglobin 26 pg (27-31); Mean Corpuscular Volume 85 fL (80-97); Mean Platelet Volume 10.5 fL (7.4-10.4); Platelet Count 106 10^3/uL (150-450); Red Blood Count 3.45 10^6 /uL (3.70-4.87); Red Cell Distribution Width 22 % (10-15); White Blood Count 5.8 10^3/uL (3.5-10.8)
[2021-10-22 08:16] LABS: ABS Lymphocytes 0.4 10^3/ul (1.0-4.8); ABS Monocytes 0.8 10^3/ul (0-0.8); ABS Neutrophils 4.5 10^3/ul (1.5-7.7); Eosinophil % 0.8 %; Lymphocyte % 6.5 %; Nucleated Red Blood Cells % 0.4
[2021-10-22] MEDS: Pantoprazole VIAL 40 MG VIAL IV SCH ×2 (08:25→16:42)
[2021-10-22] MEDS: Magnesium Hydroxide LIQ 30 ML UDC PO SCH ×2 (08:26→19:54)
[2021-10-22 08:34] LABS: Calcium 9.2 mg/dL (8.6-10.3); Magnesium 2.1 mg/dL (1.9-2.7); Potassium 3.5 mmol/L (3.5-5.0)
[2021-10-22 08:39] LABS: Phosphorus 2.8 mg/dL (2.5-5.0); eGFR CKD-EPI 82.2 (>60)
[2021-10-22] MEDS: SPIRIVA Respimat (tiotropium) 2.5 mcg/inh Inhaler INH SCH (08:53)
[2021-10-22] MEDS: Iron Sucrose 200 MG in NS 0.9% 100 ml BAG 100 ML IVPB SCH (09:16)
[2021-10-22] MEDS: cefTRIAXone 1 gm/50 mL NS BAG 1 GM/50 ML BAG IVPB SCH (11:40)
[2021-10-22] MEDS: DOXYcycline 100 MG in NS 0.9% 250 ml 250 ML IVPB SCH (12:04)
[2021-10-22] MEDS: Labetalol IV 5 MG/ML 20 ml VIAL IV PUSH PRN (19:49)
[2021-10-23 02:31] LABS: PCO2 Arterial 46 mmHg (35-45); PO2 Arterial 98 mmHg (80-100)
[2021-10-23] MEDS: Labetalol IV 5 MG/ML 20 ml VIAL IV PUSH PRN ×2 (02:53→17:20)
[2021-10-23 06:50] LABS: Calcium 9.4 mg/dL (8.6-10.3); Magnesium 1.9 mg/dL (1.9-2.7); Phosphorus 1.9 mg/dL (2.5-5.0); Potassium 3.3 mmol/L (3.5-5.0)
[2021-10-23] MEDS: SPIRIVA Respimat (tiotropium) 2.5 mcg/inh Inhaler INH SCH (07:20)
[2021-10-23] MEDS: Pantoprazole VIAL 40 MG VIAL IV SCH ×2 (09:15→17:15)
[2021-10-23] MEDS: Magnesium Hydroxide LIQ 30 ML UDC PO SCH ×2 (09:23→21:23)
[2021-10-23] MEDS ORDERED: Magnesium Sulfate IV 1GM/100ML 1 GM/100 ML BAG IV ONE (09:23)
[2021-10-23] MEDS: Iron Sucrose 200 MG in NS 0.9% 100 ml BAG 100 ML IVPB SCH (09:41)
[2021-10-23] MEDS: Potassium Acid Phos 500 mg TAB PO SCH ×3 (11:56→21:23)
[2021-10-23] MEDS: cefTRIAXone 1 gm/50 mL NS BAG 1 GM/50 ML BAG IVPB SCH (12:01)
[2021-10-24] MEDS: Labetalol IV 5 MG/ML 20 ml VIAL IV PUSH PRN ×2 (03:11→16:24)
[2021-10-24 06:52] LABS: Calcium 9.1 mg/dL (8.6-10.3); Magnesium 1.9 mg/dL (1.9-2.7); Phosphorus 1.9 mg/dL (2.5-5.0); Potassium 3.1 mmol/L (3.5-5.0); eGFR CKD-EPI 86.4 (>60)
[2021-10-24] MEDS: SPIRIVA Respimat (tiotropium) 2.5 mcg/inh Inhaler INH SCH (07:24)
[2021-10-24] MEDS: Pantoprazole VIAL 40 MG VIAL IV SCH (07:57)
[2021-10-24] MEDS: Potassium Acid Phos 500 mg TAB PO SCH (08:01)
[2021-10-24] MEDS: Magnesium Hydroxide LIQ 30 ML UDC PO SCH ×2 (08:01→20:04)
[2021-10-25] MEDS: Labetalol IV 5 MG/ML 20 ml VIAL IV PUSH PRN (03:41)
[2021-10-25] MEDS: SPIRIVA Respimat (tiotropium) 2.5 mcg/inh Inhaler INH SCH (08:18)
[2021-10-25] MEDS: Magnesium Hydroxide LIQ 30 ML UDC PO SCH ×2 (09:26→21:26)
[2021-10-26] MEDS: Labetalol IV 5 MG/ML 20 ml VIAL IV PUSH PRN ×2 (03:18→08:02)
[2021-10-26 06:22] LABS: Hematocrit 31 % (35-47); Hemoglobin 9.9 g/dL (12.0-16.0); Mean Corpuscular HGB Conc 32 g/dL (31-36); Mean Corpuscular Hemoglobin 28 pg (27-31); Mean Corpuscular Volume 86 fL (80-97); Mean Platelet Volume 9.7 fL (7.4-10.4); Platelet Count 120 10^3/uL (150-450); Red Blood Count 3.57 10^6 /uL (3.70-4.87); Red Cell Distribution Width 25 % (10-15); White Blood Count 6.2 10^3/uL (3.5-10.8)
[2021-10-26 06:40] LABS: Calcium 8.9 mg/dL (8.6-10.3); Magnesium 1.7 mg/dL (1.9-2.7); Phosphorus 1.7 mg/dL (2.5-5.0); Potassium 2.9 mmol/L (3.5-5.0); eGFR CKD-EPI 90.9 (>60)
[2021-10-26 06:53] LABS: ABS Eosinophils 0.1 10^3/ul (0-0.6); ABS Lymphocytes 0.6 10^3/ul (1.0-4.8); ABS Monocytes 0.8 10^3/ul (0-0.8); ABS Neutrophils 4.7 10^3/ul (1.5-7.7); Eosinophil % 1.3 %; Lymphocyte % 9.7 %; Nucleated Red Blood Cells % 0.2
[2021-10-26] MEDS: Magnesium Hydroxide LIQ 30 ML UDC PO SCH (08:02)
[2021-10-26] MEDS: SPIRIVA Respimat (tiotropium) 2.5 mcg/inh Inhaler INH SCH (08:33)
[2021-10-26] MEDS ORDERED: Magnesium Hydroxide LIQ 30 ML UDC PO PRN (13:57)
[2021-10-26] MEDS ORDERED: Potassium Chlor 20 meq TAB.ER PO ONE (13:59)
[2021-10-26] MEDS ORDERED: Magnesium Sulfate 2 gm BAG 2 GM/50 ML BAG IVPB ONE (13:59)
[2021-10-26] MEDS ORDERED: KCL 20 MEQ/100 ML IVPREMIX 20 MEQ/100 ML BAG IV ONE (14:24)
[2021-10-27] MEDS: hydrALAZINE 20 mg/ml 1 ML Vial IV IV SLOW PU PRN ×2 (04:12→23:22)
[2021-10-27 06:14] LABS: Calcium 8.6 mg/dL (8.6-10.3); Potassium 3.4 mmol/L (3.5-5.0); eGFR CKD-EPI 90.9 (>60)
[2021-10-27] MEDS: SPIRIVA Respimat (tiotropium) 2.5 mcg/inh Inhaler INH SCH (09:21)
[2021-10-27] MEDS: KCL 20 MEQ/100 ML IVPREMIX 20 MEQ/100 ML BAG IV SCH ×3 (09:49→14:47)
[2021-10-28] MEDS: SPIRIVA Respimat (tiotropium) 2.5 mcg/inh Inhaler INH SCH (07:15)
[2021-10-28] MEDS: hydrALAZINE 20 mg/ml 1 ML Vial IV IV SLOW PU PRN (07:50)
[2021-10-28] MEDS: Potassium Chlor 20 meq TAB.ER PO SCH ×2 (11:33→14:27)
[2021-10-28 13:11] VITALS: BP 168/59
== END 2021-10-28 17:15 | disposition hospice, home (50) | DRG 377 ==
LOC: EDHOLD 08:29 → ED 08:29 → SUATTDRO 12:01 → OBSVTOIN 12:21 → SUATTDRO 12:21 → MEDTELE 14:21 → ICU 10-17 11:41 → MEDTELE 10-21 10:32
PROVIDERS: ADMIT Hospitalist; ATTEND Internal Medicine